=== PATIENT | female | born 1970 | race Caucasian/White ===

== ENCOUNTER 2017-03-30 18:09 | Emergency (ER) | payer MEDICAID ==
[~2017-03-30] VITALS: Ht 142.2 cm; Wt 74.0 kg
[2017-03-30] MEDS ORDERED: IBUPROFEN 600MG TABLET PO ONE (21:30)
[2017-03-30 22:20] VITALS: BP 132/83
== END 2017-03-30 23:00 | disposition home or self-care (01) ==
LOC: ER 18:51
DX: S16.1XXA Strain of muscle, fascia and tendon at neck level, initial encounter (principal); S39.012A Strain of muscle, fascia and tendon of lower back, initial encounter; V89.2XXA Person injured in unspecified motor-vehicle accident, traffic, initial encounter; Y93.89 Activity, other specified; Y92.89 Other specified places as the place of occurrence of the external cause; Y99.8 Other external cause status
CPT/HCPCS: 99283